=== PATIENT | female | born 1935 | race Caucasian/White ===

== ENCOUNTER 2021-09-08 10:56 | Inpatient (IN) ==
[2021-09-08 13:02] LABS: ABS Eosinophils 0.1 10^3/ul (0-0.6); ABS Lymphocytes 1.2 10^3/ul (1.0-4.8); ABS Monocytes 1.5 10^3/ul (0-0.8); ABS Neutrophils 6.9 10^3/ul (1.5-7.7); Eosinophil % 0.6 %; Hematocrit 38 % (35-47); Hemoglobin 12.9 g/dL (12.0-16.0); Lymphocyte % 12.6 %; Mean Corpuscular HGB Conc 34 g/dL (31-36); Mean Corpuscular Hemoglobin 33 pg (27-31); Mean Corpuscular Volume 96 fL (80-97); Mean Platelet Volume 8.1 fL (7.4-10.4); Platelet Count 237 10^3/uL (150-450); Red Blood Count 3.92 10^6 /uL (3.70-4.87); Red Cell Distribution Width 13 % (10-15); White Blood Count 9.6 10^3/uL (3.5-10.8)
[2021-09-08 13:15] LABS: INR 1.39 (0.86-1.15)
[2021-09-08 13:26] LABS: ALT 27 U/L (7-52); Albumin 3.7 g/dL (3.2-5.2); Albumin/Globulin Ratio 1.3 (1-3); Alkaline Phosphatase 120 U/L (35-149); Blood Urea Nitrogen 12 mg/dL (6-24); CO2 Carbon Dioxide 28 mmol/L (22-32); Chloride 102 mmol/L (101-111); Globulin 2.8 g/dL (2-4); Glucose 109 mg/dL (70-100); High Sens Troponin Baseline 6 pg/mL (<15); Sodium 134 mmol/L (135-145); Total Protein 6.5 g/dL (6.4-8.9); eGFR CKD-EPI 93.2 (>60)
[2021-09-08 13:36] LABS: Anion Gap 4 mmol/L (2-11)
[2021-09-08 13:43] LABS: PCO2 Arterial 54 mmHg (35-45); PO2 Arterial 92 mmHg (80-100)
[2021-09-08 13:43] LABS: Urine Appearance Cloudy; Urine Bilirubin Negative (Negative); Urine Blood Negative (Negative); Urine Color Amber; Urine Glucose Negative (Negative); Urine Ketones Negative (Negative); Urine Nitrite Negative (Negative); Urine Protein Negative (Negative); Urine Specific Gravity 1.018 (1.002-1.030); Urine Urobilinogen Negative (Negative)
[2021-09-08] MEDS ORDERED: Iodixanol (CONTRAST) 320 MG/ML 100 ML SDV IV ONE (13:54)
[2021-09-08 14:26] LABS: High Sensitivity Troponin 1 Hr 6 pg/mL (<15)
[2021-09-08] MEDS ORDERED: Furosemide 40 mg/4 ml IV VIAL IV ONE (15:16)
[2021-09-08 16:53] LABS: C Reactive Protein 128.54 mg/L (<8.01)
[2021-09-08] MEDS ORDERED: Piperacillin/Tazobac ADVAN 3.375 GM in NS 0.9% 100 ml BAG 100 ML IV ONE (18:34)
[2021-09-08] MEDS ORDERED: Piperacillin/Tazobac 3.375 GM BAG ONE (18:47)
[2021-09-08] MEDS ORDERED: Zosyn per Pharmacy NOTE FOLLOW UP SCH (19:00)
[2021-09-08] MEDS ORDERED: PROPYLENE GLYCOL OPHTHALMIC PRN (19:12)
[2021-09-08] MEDS ORDERED: GLYCERIN OPHTHALMIC PRN (19:12)
[2021-09-08] MEDS ORDERED: NFT: Multivitamins/Mins AREDS2 (NF) CAP PO SCH (21:00)
[2021-09-08 23:39] LABS: Potassium Redraw 3.4 mmol/L (3.5-5.0)
[2021-09-09] MEDS: CMCS: Cyclosporine 0.05% OPHTH (NF) 0.4 ML VIAL BOTH EYES SCH ×3 (00:09→22:23)
[2021-09-09] MEDS: Latanoprost 0.005% 2.5 ml BTL BOTH EYES SCH ×2 (00:09→23:51)
[2021-09-09] MEDS: ZOSYN 3.375 GM Q8H per EXTENDED INFUSION IV SCH ×4 (00:12→22:21)
[2021-09-09] MEDS ORDERED: Saline NASAL SPRAY 0.65% BTL BOTH NARES PRN (01:20)
[2021-09-09 06:05] LABS: ABS Eosinophils 0.2 10^3/ul (0-0.6); ABS Lymphocytes 1.7 10^3/ul (1.0-4.8); ABS Monocytes 1.5 10^3/ul (0-0.8); ABS Neutrophils 4.5 10^3/ul (1.5-7.7); Hematocrit 39 % (35-47); Lymphocyte % 21.1 %; Mean Corpuscular HGB Conc 34 g/dL (31-36); Mean Corpuscular Hemoglobin 32 pg (27-31); Mean Corpuscular Volume 96 fL (80-97); Mean Platelet Volume 7.7 fL (7.4-10.4); Platelet Count 234 10^3/uL (150-450); Red Blood Count 4.02 10^6 /uL (3.70-4.87); Red Cell Distribution Width 13 % (10-15); White Blood Count 7.9 10^3/uL (3.5-10.8)
[2021-09-09 06:37] LABS: Calcium 8.9 mg/dL (8.6-10.3); Potassium 3.7 mmol/L (3.5-5.0); TSH Ultra Thyroid Stim Horm 1.11 mcIU/mL (0.34-5.60); eGFR CKD-EPI 87.9 (>60)
[2021-09-09] MEDS ORDERED: Potassium Chlor 20 meq TAB.ER PO ONE (07:25)
[2021-09-09] MEDS ORDERED: Dextran 70/Hypromellose Tears Eye Drops 15 ml BTL (for Artificials Tears) BOTH EYES PRN (08:00)
[2021-09-09] MEDS: Cholecalciferol (VIT D3) 1,000 unit TAB PO SCH (09:39)
[2021-09-09] MEDS: Multivitamins/Minerals TAB PO SCH (09:39)
[2021-09-09] MEDS ORDERED: Senna TAB 8.6 mg TAB PO PRN (11:56)
[2021-09-09] MEDS ORDERED: Polyethylene Glycol 3350 17 GM PACKET PO PRN (11:56)
[2021-09-09] MEDS: TRAVOPROST 0.004% BOTH EYES SCH (22:21)
[2021-09-10 05:17] LABS: ABS Eosinophils 0.3 10^3/ul (0-0.6); ABS Lymphocytes 1.3 10^3/ul (1.0-4.8); ABS Monocytes 1.4 10^3/ul (0-0.8); ABS Neutrophils 5.2 10^3/ul (1.5-7.7); Eosinophil % 3.3 %; Hematocrit 36 % (35-47); Hemoglobin 12.1 g/dL (12.0-16.0); Lymphocyte % 15.6 %; Mean Corpuscular HGB Conc 33 g/dL (31-36); Mean Corpuscular Hemoglobin 32 pg (27-31); Mean Corpuscular Volume 97 fL (80-97); Mean Platelet Volume 7.9 fL (7.4-10.4); Platelet Count 246 10^3/uL (150-450); Red Blood Count 3.76 10^6 /uL (3.70-4.87); Red Cell Distribution Width 13 % (10-15); White Blood Count 8.2 10^3/uL (3.5-10.8)
[2021-09-10 05:39] LABS: Calcium 8.8 mg/dL (8.6-10.3); Potassium 4.3 mmol/L (3.5-5.0); eGFR CKD-EPI 88.3 (>60)
[2021-09-10] MEDS: ZOSYN 3.375 GM Q8H per EXTENDED INFUSION IV SCH (07:07)
[2021-09-10] MEDS: Cholecalciferol (VIT D3) 1,000 unit TAB PO SCH (09:20)
[2021-09-10] MEDS: CMCS: Cyclosporine 0.05% OPHTH (NF) 0.4 ML VIAL BOTH EYES SCH ×2 (09:21→20:19)
[2021-09-10] MEDS: Multivitamins/Minerals TAB PO SCH (09:21)
[2021-09-10] MEDS: cefTRIAXone 1 gm/50 mL NS BAG 1 GM/50 ML BAG IVPB SCH (12:04)
[2021-09-10] MEDS: DOXYcycline 100 MG in NS 0.9% 250 ml 250 ML IVPB SCH ×2 (14:42→22:38)
[2021-09-10] MEDS: TRAVOPROST 0.004% BOTH EYES SCH (20:19)
[2021-09-11 06:10] LABS: ABS Eosinophils 0.3 10^3/ul (0-0.6); ABS Lymphocytes 1.4 10^3/ul (1.0-4.8); ABS Monocytes 1.1 10^3/ul (0-0.8); ABS Neutrophils 4.1 10^3/ul (1.5-7.7); Eosinophil % 4.2 %; Hematocrit 37 % (35-47); Hemoglobin 12.4 g/dL (12.0-16.0); Lymphocyte % 20.5 %; Mean Corpuscular HGB Conc 34 g/dL (31-36); Mean Corpuscular Hemoglobin 33 pg (27-31); Mean Corpuscular Volume 96 fL (80-97); Mean Platelet Volume 7.5 fL (7.4-10.4); Platelet Count 278 10^3/uL (150-450); Red Blood Count 3.78 10^6 /uL (3.70-4.87); Red Cell Distribution Width 13 % (10-15); White Blood Count 6.9 10^3/uL (3.5-10.8)
[2021-09-11 06:24] LABS: Potassium 4.1 mmol/L (3.5-5.0); eGFR CKD-EPI 87.2 (>60)
[2021-09-11 09:25] LABS: C Reactive Protein 39.51 mg/L (<8.01)
[2021-09-11] MEDS: CMCS: Cyclosporine 0.05% OPHTH (NF) 0.4 ML VIAL BOTH EYES SCH ×2 (10:20→21:06)
[2021-09-11] MEDS: DOXYcycline 100 MG in NS 0.9% 250 ml 250 ML IVPB SCH ×2 (10:20→22:21)
[2021-09-11] MEDS: Multivitamins/Minerals TAB PO SCH (10:24)
[2021-09-11] MEDS: Cholecalciferol (VIT D3) 1,000 unit TAB PO SCH (10:25)
[2021-09-11] MEDS: cefTRIAXone 1 gm/50 mL NS BAG 1 GM/50 ML BAG IVPB SCH (12:21)
[2021-09-11] MEDS ORDERED: Furosemide 20 mg/2 ml IV VIAL IV ONE (16:00)
[2021-09-11] MEDS: TRAVOPROST 0.004% BOTH EYES SCH (21:11)
[2021-09-12] MEDS: Cholecalciferol (VIT D3) 1,000 unit TAB PO SCH (08:08)
[2021-09-12] MEDS: Multivitamins/Minerals TAB PO SCH (08:08)
[2021-09-12] MEDS: CMCS: Cyclosporine 0.05% OPHTH (NF) 0.4 ML VIAL BOTH EYES SCH (09:08)
[2021-09-12] MEDS: DOXYcycline 100 MG in NS 0.9% 250 ml 250 ML IVPB SCH (11:11)
[2021-09-12] MEDS ORDERED: Magnesium Sulfate 2 gm BAG 2 GM/50 ML BAG IVPB ONE (11:16)
[2021-09-12] MEDS: cefTRIAXone 1 gm/50 mL NS BAG 1 GM/50 ML BAG IVPB SCH (13:11)
[2021-09-12] MEDS ORDERED: Lidocaine PATCH 5% PATCH TRANSDERM ONE (13:28)
[2021-09-12 15:36] VITALS: BP 105/71
== END 2021-09-12 16:28 | disposition home or self-care (01) | DRG 194 ==
LOC: ED 10:56 → SUATTDRO 18:30 → EDHOLD 18:30 → MED 20:43
PROVIDERS: ADMIT Internal Medicine; ATTEND Internal Medicine

== ENCOUNTER 2023-12-10 08:17 | Observation (INO) ==
[2023-12-10 09:50] LABS: Albumin 3.7 g/dL (3.2-5.2); Albumin/Globulin Ratio 1.9 (1-3); Calcium 8.9 mg/dL (8.6-10.3); Creatinine, Serum 0.53 mg/dL (0.51-0.95); Magnesium 1.7 mg/dL (1.9-2.7); Phosphorus 4.3 mg/dL (2.5-5.0); Potassium 4.7 mmol/L (3.5-5.0); Total Bilirubin 0.7 mg/dL (0.2-1.0); Total Protein 5.7 g/dL (6.4-8.9); eGFR CKD-EPI 88.9 (>60)
[2023-12-10 11:47] LABS: High Sensitivity Troponin 1 Hr 7 pg/mL (<15)
[2023-12-10 12:16] LABS: C Reactive Protein 1.47 mg/L (<8.01)
[2023-12-10 13:08] LABS: ABS Basophils 0.1 10^3/uL (0.0-0.1); ABS Eosinophils 0.2 10^3/uL (0.0-0.5); ABS Lymphocytes 1.1 10^3/uL (1.0-4.8); ABS Monocytes 0.9 10^3/uL (0.0-0.9); ABS Neutrophils 2.6 10^3/uL (1.5-7.6); Eosinophil % 4.3 %; Hematocrit 37.4 % (35-45); Hemoglobin 12.3 g/dL (11.5-14.3); Lymphocyte % 22.8 %; Mean Corpuscular Volume 94.1 fL (80-97); Mean Platelet Volume 7.8 fL (7.5-11.2); Platelet Count 172 10^3/uL (150-450); Red Blood Count 3.98 10^6/uL (3.63-4.92); Red Cell Distribution Width 15.2 % (12-17); White Blood Count 4.8 10^3/uL (3.8-11.8)
[2023-12-10] MEDS ORDERED: Polyethylene Glycol 3350 17 GM PACKET PO PRN (14:02)
[2023-12-10] MEDS ORDERED: Al Hydrox/Mg Hydrox/Simet LIQ 30 ML UDC PO PRN (14:02)
[2023-12-10 14:24] LABS: Urine Appearance Clear; Urine Bilirubin Negative (Negative); Urine Blood 2+ (Negative); Urine Color Light-Yellow; Urine Glucose Negative (Negative); Urine Ketones Negative (Negative); Urine Nitrite Negative (Negative); Urine Protein Negative (Negative); Urine Urobilinogen Negative (Negative); Urine pH 6.5 (5.0-8.0)
[2023-12-10 14:34] LABS: Urine Bacteria Absent /HPF (Absent); Urine Red Blood Cell 3+(>10/hpf) /HPF (0-Trace); Urine Squamous Epithelial Cell Present /HPF (Absent); Urine White Blood Cell 1+(6-10/hpf) /HPF (0-Trace)
[2023-12-10] MEDS: Furosemide 40 mg/4 ml IV VIAL IV SLOW PU ONE (18:08)
[2023-12-10] MEDS: Magnesium Sulfate 2 gm BAG 2 GM/50 ML BAG IVPB ONE (18:08)
[2023-12-10] MEDS: CMCS: Cyclosporine 0.05% OPHTH (NF) 0.4 ML VIAL BOTH EYES SCH (21:26)
[2023-12-10] MEDS ORDERED: Senna/Docusate 8.6/50 mg (NF) TAB PO SCH (22:00)
[2023-12-10] MEDS: Docusate LIQ 100 MG/10 ML UDC PO SCH (22:40)
[2023-12-10] MEDS: Senna TAB 8.6 mg TAB PO SCH (22:40)
[2023-12-11 06:24] LABS: ABS Eosinophils 0.2 10^3/uL (0.0-0.5); ABS Lymphocytes 1.2 10^3/uL (1.0-4.8); ABS Monocytes 0.8 10^3/uL (0.0-0.9); ABS Neutrophils 2.5 10^3/uL (1.5-7.6); ABS Nucleated RBC 0.01 10^3/ul; Eosinophil % 4.6 %; Hematocrit 36.4 % (35-45); Hemoglobin 12.3 g/dL (11.5-14.3); Lymphocyte % 24.9 %; Mean Corpuscular Hemoglobin 31.4 pg (27-33); Mean Corpuscular Hgb Conc 33.7 g/dL (31-36); Mean Corpuscular Volume 93.3 fL (80-97); Mean Platelet Volume 8.2 fL (7.5-11.2); Nucleated Red Blood Cells % 0.2 %/100WBC (0.0-0.8); Platelet Count 169 10^3/uL (150-450); Red Blood Count 3.91 10^6/uL (3.63-4.92); Red Cell Distribution Width 14.7 % (12-17); White Blood Count 4.7 10^3/uL (3.8-11.8)
[2023-12-11 06:39] LABS: Calcium 8.8 mg/dL (8.6-10.3); Creatinine, Serum 0.62 mg/dL (0.51-0.95); Potassium 4.3 mmol/L (3.5-5.0); eGFR CKD-EPI 85.6 (>60)
[2023-12-11] MEDS: DULoxetine DR 20 mg CAP PO SCH (09:09)
[2023-12-11] MEDS: Cholecalciferol (VIT D3) 1,000 unit TAB PO SCH (09:10)
[2023-12-11] MEDS: Furosemide 40 mg/4 ml IV VIAL IV SLOW PU ONE (12:28)
[2023-12-12 06:30] LABS: Calcium 8.8 mg/dL (8.6-10.3); Creatinine, Serum 0.62 mg/dL (0.51-0.95); Potassium 3.8 mmol/L (3.5-5.0); eGFR CKD-EPI 85.6 (>60)
[2023-12-12] MEDS: Sulfur Hexaflouride MICROSPHR 25 MG VIAL IV ONE ×2 (14:13→14:14)
[2023-12-12] MEDS: PTO:Multivitamins/Mins AREDS2 (NF) CAP PO SCH (22:00)
[2023-12-13 05:53] VITALS: BP 103/63
== END 2023-12-13 09:10 ==
LOC: EDHOLD 08:17 → ED 08:17 → MEDTELE 14:26
PROVIDERS: ADMIT Internal Medicine; ATTEND Internal Medicine